=== PATIENT | male | born 1930 | race Caucasian/White ===

== ENCOUNTER 2020-11-09 12:31 | Inpatient (IN) | payer OTHER, BC ==
[2020-11-09 15:01] LABS: BASO % 1.2 % (0-2.0); EOS % 6.2 % (0-4.5); HEMATOCRIT 24.4 % (35.4-49); HEMOGLOBIN 8.3 GM/dL (11.7-16.9); MCH 33.9 pg (25.7-33.7); MEAN CELL VOLUME 99.8 fl (80-96); MEAN PLT VOLUME 9.6 fl (7.5-11.1); MONO % 16.1 % (3.8-10.2); NEUT % 58.5 % (42.8-82.8); PLATELET COUNT 207 K/MM3 (134-434); RBC 2.44 M/mm3 (4.00-5.60); RDW 15.1 % (11.9-15.9); WHITE BLOOD COUNT 6.6 K/mm3 (4.0-10.0)
[2020-11-09 15:07] LABS: INR 1.86 (0.83-1.09); PROTHROMBIN TIME (PATIENT) 22.5 SEC (9.7-13.0)
[2020-11-09 15:10] LABS: ACTIVATED PTT 34.3 SECONDS (25.2-36.5)
[2020-11-09 15:25] LABS: POTASSIUM 4.5 mmol/L (3.5-5.1)
[2020-11-09 15:27] LABS: CALCIUM 9.2 mg/dL (8.5-10.1)
[2020-11-09 15:28] LABS: ALBUMIN 2.9 g/dl (3.4-5.0); BLOOD UREA NITROGEN 20.2 mg/dL (7-18); MAGNESIUM 2.3 mg/dL (1.8-2.4)
[2020-11-09 15:30] LABS: CREATININE 1.1 mg/dL (0.55-1.3)
[2020-11-09 15:32] LABS: BILIRUBIN,TOTAL 0.6 mg/dL (0.2-1)
[2020-11-09 22:06] LABS: BASO % 1.1 % (0-2.0); EOS % 4.4 % (0-4.5); HEMATOCRIT 23.8 % (35.4-49); HEMOGLOBIN 8.3 GM/dL (11.7-16.9); LYMPH % 21.7 % (8-40); MCH 34.7 pg (25.7-33.7); MCHC 34.9 g/dl (32.0-35.9); MEAN CELL VOLUME 99.3 fl (80-96); MEAN PLT VOLUME 9.4 fl (7.5-11.1); MONO % 16.1 % (3.8-10.2); NEUT % 56.7 % (42.8-82.8); PLATELET COUNT 212 K/MM3 (134-434); RDW 15.3 % (11.9-15.9); WHITE BLOOD COUNT 7.3 K/mm3 (4.0-10.0)
[2020-11-09] MEDS ORDERED: SOTALOL HCL 80 MG TABLET (FP) PO ONE (22:14)
[2020-11-09] MEDS ORDERED: TAMSULOSIN HCL 0.4 MG CAP PO ONE (22:14)
[2020-11-09] MEDS ORDERED: FINASTERIDE 5 MG TABLET (FP) PO ONE (22:16)
[2020-11-09] MEDS ORDERED: TAMSULOSIN HCL 0.4 MG CAP ONE (22:27)
[2020-11-10] MEDS ORDERED: FINASTERIDE 5 MG TABLET (FP) PO SCH (10:00)
[2020-11-10] MEDS ORDERED: ALBUTEROL SO4 2.5/IPRATROPIUM 0.5 INH SOL 3 ML VIAL.NEB. NEB PRN (10:13)
[2020-11-10] MEDS ORDERED: ASCORBIC ACID 500 MG TABLET (FP) ONE (11:35)
[2020-11-10] MEDS ORDERED: ZINC SULFATE 220 MG CAPSULE (FP) ONE (11:35)
[2020-11-10] MEDS ORDERED: FAMOTIDINE 20 MG TABLET ONE (11:35)
[2020-11-10] MEDS ORDERED: TAMSULOSIN HCL 0.4 MG CAP ONE (11:36)
[2020-11-10] MEDS ORDERED: PANTOPRAZOLE SODIUM 40 MG/100 ML BAG IVPB ONE (11:36)
[2020-11-10] MEDS: ASCORBIC ACID 500 MG TABLET (FP) PO SCH (12:00)
[2020-11-10] MEDS: PANTOPRAZOLE SODIUM 40 MG VIAL IVPUSH SCH ×2 (12:00→23:33)
[2020-11-10] MEDS: TAMSULOSIN HCL 0.4 MG CAP PO SCH (12:00)
[2020-11-10] MEDS: ZINC SULFATE 220 MG CAPSULE (FP) PO SCH (12:00)
[2020-11-10] MEDS: FAMOTIDINE 20 MG TABLET PO SCH (12:00)
[2020-11-10] MEDS ORDERED: ALBUTEROL SO4 HFA INHALER IH PRN (12:43)
[2020-11-10] MEDS: D5-1/2NS+20 MEQ KCL - 20 MEQ/1,000 ML INFUS.BAG IV SCH (14:52)
[2020-11-10] MEDS: SOTALOL HCL 80 MG TABLET (FP) PO SCH ×2 (16:00→23:33)
[2020-11-10] MEDS: FINASTERIDE 5 MG TABLET (FP) PO SCH (23:33)
[2020-11-10] MEDS: ATORVASTATIN CA 10 MG TABLET (FP) PO SCH (23:33)
[2020-11-11] MEDS: SOTALOL HCL 80 MG TABLET (FP) PO SCH (05:43)
[2020-11-11] MEDS: D5-1/2NS+20 MEQ KCL - 20 MEQ/1,000 ML INFUS.BAG IV SCH ×2 (05:44→12:15)
[2020-11-11 05:53] LABS: EPI CELLS 8 /uL (0-25.1); HYALINE CASTS 2 /uL (0-3.1); URINE APPEARANCE CLEAR; URINE BACTERIA 42 /uL (0-1359); URINE BILIRUBIN NEGATIVE (NEGATIVE); URINE COLOR YELLOW; URINE GLUCOSE (UA) NEGATIVE (NEGATIVE); URINE KETONE TRACE (NEGATIVE); URINE LEUK ESTERASE TRACE (NEGATIVE); URINE NITRITE NEGATIVE (NEGATIVE); URINE PROTEIN TRACE (NEGATIVE); URINE RBC 14 /uL (0-23.9); URINE UROBILINOGEN 0.2 mg/dL (0.2-1.0); URINE WBC 11 /uL (0-25.8)
[2020-11-11] MEDS ORDERED: PT OWN MED DRAWER 7, Y5N ONE (06:27)
[2020-11-11 09:10] LABS: BASO % 0.7 % (0-2.0); EOS % 0.3 % (0-4.5); HEMATOCRIT 18.1 % (35.4-49); LYMPH % 14.9 % (8-40); MCH 34.4 pg (25.7-33.7); MCHC 34.6 g/dl (32.0-35.9); MEAN CELL VOLUME 99.5 fl (80-96); MEAN PLT VOLUME 9.6 fl (7.5-11.1); MONO % 14.4 % (3.8-10.2); NEUT % 69.7 % (42.8-82.8); PLATELET COUNT 183 K/MM3 (134-434); RBC 1.82 M/mm3 (4.00-5.60); RDW 15.6 % (11.9-15.9); WHITE BLOOD COUNT 7.6 K/mm3 (4.0-10.0)
[2020-11-11 09:21] LABS: HEMOGLOBIN 6.3 GM/dL (11.7-16.9)
[2020-11-11] MEDS: FAMOTIDINE 20 MG TABLET PO SCH (10:48)
[2020-11-11] MEDS: ZINC SULFATE 220 MG CAPSULE (FP) PO SCH (10:48)
[2020-11-11] MEDS: ASCORBIC ACID 500 MG TABLET (FP) PO SCH (10:48)
[2020-11-11] MEDS: TAMSULOSIN HCL 0.4 MG CAP PO SCH (10:48)
[2020-11-11] MEDS: PANTOPRAZOLE SODIUM 40 MG VIAL IVPUSH SCH ×2 (10:56→22:45)
[2020-11-11] MEDS: VANCOMYCIN 250 MG/5 ML ORAL SOLUTION PO SCH ×2 (13:07→18:22)
[2020-11-11 21:27] LABS: HEMOGLOBIN 8.8 GM/dL (11.7-16.9); MCH 32.3 pg (25.7-33.7); MCHC 33.6 g/dl (32.0-35.9); MEAN CELL VOLUME 96.1 fl (80-96); MEAN PLT VOLUME 9.6 fl (7.5-11.1); PLATELET COUNT 176 K/MM3 (134-434); RBC 2.71 M/mm3 (4.00-5.60); RDW 17.3 % (11.9-15.9)
[2020-11-11] MEDS: MUPIROCIN 2% TOPICAL OINTMENT FOR DECOLONIZATION NS SCH (22:44)
[2020-11-11] MEDS: CHLORHEXIDINE GLUCONATE 4% CLEANSER FOR DECOLONIZATION TP SCH (22:44)
[2020-11-11] MEDS: FINASTERIDE 5 MG TABLET (FP) PO SCH (22:45)
[2020-11-11] MEDS: ATORVASTATIN CA 10 MG TABLET (FP) PO SCH (22:45)
[2020-11-12] MEDS: VANCOMYCIN 250 MG/5 ML ORAL SOLUTION PO SCH ×2 (00:10→06:17)
[2020-11-12 07:17] LABS: HEMATOCRIT 22.2 % (35.4-49); HEMOGLOBIN 7.6 GM/dL (11.7-16.9); MCH 32.5 pg (25.7-33.7); MCHC 34.2 g/dl (32.0-35.9); MEAN PLT VOLUME 9.6 fl (7.5-11.1); PLATELET COUNT 166 K/MM3 (134-434); RBC 2.33 M/mm3 (4.00-5.60); RDW 17.2 % (11.9-15.9); WHITE BLOOD COUNT 9.9 K/mm3 (4.0-10.0)
[2020-11-12 07:23] LABS: BASO % 0.8 % (0-2.0); EOS % 0.3 % (0-4.5); HEMATOCRIT 22.2 % (35.4-49); HEMOGLOBIN 7.5 GM/dL (11.7-16.9); LYMPH % 14.5 % (8-40); MCH 32.4 pg (25.7-33.7); MEAN CELL VOLUME 95.5 fl (80-96); MEAN PLT VOLUME 9.7 fl (7.5-11.1); MONO % 15.8 % (3.8-10.2); NEUT % 68.6 % (42.8-82.8); PLATELET COUNT 167 K/MM3 (134-434); RBC 2.32 M/mm3 (4.00-5.60); RDW 17.4 % (11.9-15.9)
[2020-11-12 07:45] LABS: POTASSIUM 4.7 mmol/L (3.5-5.1)
[2020-11-12 07:49] LABS: BLOOD UREA NITROGEN 21.9 mg/dL (7-18); CALCIUM 8.2 mg/dL (8.5-10.1)
[2020-11-12 07:53] LABS: CREATININE 1.2 mg/dL (0.55-1.3)
[2020-11-12 07:54] LABS: BILIRUBIN,TOTAL 1.1 mg/dL (0.2-1); TOT PROT 5.4 g/dl (6.4-8.2)
[2020-11-12 08:25] LABS: ALBUMIN 2.3 g/dl (3.4-5.0)
[2020-11-12 09:10] LABS: ERYTHROCYTE SEDIMENTATION RATE 10 mm/hr (0-20)
[2020-11-12] MEDS: TAMSULOSIN HCL 0.4 MG CAP PO SCH (09:23)
[2020-11-12] MEDS: FAMOTIDINE 20 MG TABLET PO SCH (09:23)
[2020-11-12] MEDS: ZINC SULFATE 220 MG CAPSULE (FP) PO SCH (09:23)
[2020-11-12] MEDS: PANTOPRAZOLE SODIUM 40 MG VIAL IVPUSH SCH ×2 (09:23→22:48)
[2020-11-12] MEDS: ASCORBIC ACID 500 MG TABLET (FP) PO SCH (09:23)
[2020-11-12] MEDS: MUPIROCIN 2% TOPICAL OINTMENT FOR DECOLONIZATION NS SCH ×2 (09:23→22:47)
[2020-11-12 10:30] LABS: INR 1.54 (0.83-1.09); PROTHROMBIN TIME (PATIENT) 18.4 SEC (9.7-13.0)
[2020-11-12 10:33] LABS: ACTIVATED PTT 28.3 SECONDS (25.2-36.5)
[2020-11-12] MEDS ORDERED: SODIUM CHLORIDE 250 ML IV STA (11:39)
[2020-11-12] MEDS ORDERED: PHYTONADIONE 10 MG/1 ML AMP IVPB ONE (11:45)
[2020-11-12] MEDS: DEXTROSE 5%-NORMAL SALINE 1,000 ML IV SCH (12:12)
[2020-11-12] MEDS ORDERED: PT OWN MED DRAWER 7, Y5N ONE ×2 (14:06→22:50)
[2020-11-12] MEDS: D5-1/2NS+20 MEQ KCL - 20 MEQ/1,000 ML INFUS.BAG IV SCH (14:22)
[2020-11-12] MEDS: SOTALOL HCL 80 MG TABLET (FP) PO SCH ×2 (14:23→22:51)
[2020-11-12 18:37] LABS: HEMATOCRIT 25.2 % (35.4-49); HEMOGLOBIN 8.4 GM/dL (11.7-16.9); MCH 31.6 pg (25.7-33.7); MCHC 33.1 g/dl (32.0-35.9); MEAN CELL VOLUME 95.3 fl (80-96); MEAN PLT VOLUME 9.5 fl (7.5-11.1); PLATELET COUNT 165 K/MM3 (134-434); RBC 2.65 M/mm3 (4.00-5.60); RDW 18.4 % (11.9-15.9); WHITE BLOOD COUNT 9.3 K/mm3 (4.0-10.0)
[2020-11-12] MEDS: CHLORHEXIDINE GLUCONATE 4% CLEANSER FOR DECOLONIZATION TP SCH (22:48)
[2020-11-12] MEDS: FINASTERIDE 5 MG TABLET (FP) PO SCH (22:48)
[2020-11-12] MEDS: ATORVASTATIN CA 10 MG TABLET (FP) PO SCH (22:48)
[2020-11-13] MEDS ORDERED: PROCHLORPERAZINE INJECTION 10 MG/2 ML VIAL IVPB ONE (04:15)
[2020-11-13 04:31] LABS: HEMATOCRIT 22.5 % (35.4-49); HEMOGLOBIN 7.7 GM/dL (11.7-16.9); MCH 32.3 pg (25.7-33.7); MCHC 34.3 g/dl (32.0-35.9); MEAN CELL VOLUME 94.1 fl (80-96); MEAN PLT VOLUME 9.6 fl (7.5-11.1); PLATELET COUNT 167 K/MM3 (134-434); RBC 2.39 M/mm3 (4.00-5.60); RDW 18.5 % (11.9-15.9); WHITE BLOOD COUNT 10.4 K/mm3 (4.0-10.0)
[2020-11-13] MEDS: SOTALOL HCL 80 MG TABLET (FP) PO SCH ×3 (04:59→21:42)
[2020-11-13 07:15] LABS: BASO % 0.7 % (0-2.0); EOS % 0.3 % (0-4.5); HEMATOCRIT 22.6 % (35.4-49); HEMOGLOBIN 7.8 GM/dL (11.7-16.9); LYMPH % 9.8 % (8-40); MCH 32.5 pg (25.7-33.7); MCHC 34.3 g/dl (32.0-35.9); MEAN CELL VOLUME 94.7 fl (80-96); MEAN PLT VOLUME 9.5 fl (7.5-11.1); MONO % 16.3 % (3.8-10.2); NEUT % 72.9 % (42.8-82.8); PLATELET COUNT 157 K/MM3 (134-434); RBC 2.39 M/mm3 (4.00-5.60); RDW 18.8 % (11.9-15.9); WHITE BLOOD COUNT 12.5 K/mm3 (4.0-10.0)
[2020-11-13 07:20] LABS: INR 1.35 (0.83-1.09); PROTHROMBIN TIME (PATIENT) 16.2 SEC (9.7-13.0)
[2020-11-13 07:33] LABS: POTASSIUM 4.4 mmol/L (3.5-5.1)
[2020-11-13 07:38] LABS: CALCIUM 8.1 mg/dL (8.5-10.1)
[2020-11-13 07:39] LABS: ALBUMIN 2.6 g/dl (3.4-5.0)
[2020-11-13 07:42] LABS: BILIRUBIN,TOTAL 1.1 mg/dL (0.2-1); CREATININE 1.2 mg/dL (0.55-1.3); TOT PROT 5.9 g/dl (6.4-8.2)
[2020-11-13] MEDS: TAMSULOSIN HCL 0.4 MG CAP PO SCH (08:34)
[2020-11-13] MEDS ORDERED: CALCIUM CHLORIDE 10% 1 GM/10 ML *VIAL IVPB ONE (09:02)
[2020-11-13] MEDS ORDERED: CALCIUM CHLORIDE 1 GM/10 ML *DISP.SYRIN ONE (09:12)
[2020-11-13] MEDS: ASCORBIC ACID 500 MG TABLET (FP) PO SCH (09:33)
[2020-11-13] MEDS: ZINC SULFATE 220 MG CAPSULE (FP) PO SCH (09:34)
[2020-11-13] MEDS: FAMOTIDINE 20 MG TABLET PO SCH (09:34)
[2020-11-13] MEDS: MUPIROCIN 2% TOPICAL OINTMENT FOR DECOLONIZATION NS SCH ×2 (09:34→23:00)
[2020-11-13] MEDS: PANTOPRAZOLE SODIUM 40 MG VIAL IVPUSH SCH (09:34)
[2020-11-13] MEDS: DEXTROSE 5%-NORMAL SALINE 1,000 ML IV SCH (12:16)
[2020-11-13] MEDS ORDERED: ALPRAZolam 1 MG TABLET PO PRN (12:27)
[2020-11-13] MEDS ORDERED: PT OWN MED DRAWER 7, Y5N ONE ×2 (12:32→21:10)
[2020-11-13] MEDS ORDERED: DEXTROSE 5%-LACTATED RINGERS 1,000 ML IV SCH (12:45)
[2020-11-13 14:45] LABS: HEMATOCRIT 25.5 % (35.4-49); HEMOGLOBIN 8.7 GM/dL (11.7-16.9); MCHC 34.1 g/dl (32.0-35.9); MEAN CELL VOLUME 93.8 fl (80-96); MEAN PLT VOLUME 9.4 fl (7.5-11.1); PLATELET COUNT 169 K/MM3 (134-434); RBC 2.72 M/mm3 (4.00-5.60); RDW 17.6 % (11.9-15.9); WHITE BLOOD COUNT 12.3 K/mm3 (4.0-10.0)
[2020-11-13] MEDS ORDERED: POLYETHYLENE GLYCOL 3350 119 GM BTL PO ONE (16:57)
[2020-11-13] MEDS: PANTOPRAZOLE SODIUM 80 MG in SODIUM CHLORIDE 100 ML IVPB SCH (18:28)
[2020-11-13] MEDS ORDERED: FUROSEMIDE 40 MG/4 ML INJECTABLE VIAL IVPUSH ONE (19:08)
[2020-11-13] MEDS: ATORVASTATIN CA 10 MG TABLET (FP) PO SCH (21:42)
[2020-11-13] MEDS: CHLORHEXIDINE GLUCONATE 4% CLEANSER FOR DECOLONIZATION TP SCH (21:43)
[2020-11-13] MEDS: FINASTERIDE 5 MG TABLET (FP) PO SCH (21:43)
[2020-11-13 22:04] LABS: HEMATOCRIT 26.4 % (35.4-49); HEMOGLOBIN 8.8 GM/dL (11.7-16.9); MCH 31.7 pg (25.7-33.7); MCHC 33.3 g/dl (32.0-35.9); MEAN CELL VOLUME 95.4 fl (80-96); MEAN PLT VOLUME 9.8 fl (7.5-11.1); PLATELET COUNT 173 K/MM3 (134-434); RBC 2.77 M/mm3 (4.00-5.60); RDW 17.9 % (11.9-15.9); WHITE BLOOD COUNT 11.8 K/mm3 (4.0-10.0)
[2020-11-14] MEDS ORDERED: PT OWN MED DRAWER 7, Y5N ONE ×3 (06:10→21:05)
[2020-11-14] MEDS: PANTOPRAZOLE SODIUM 80 MG in SODIUM CHLORIDE 100 ML IVPB SCH ×3 (06:14→13:45)
[2020-11-14] MEDS: SOTALOL HCL 80 MG TABLET (FP) PO SCH ×3 (06:14→21:18)
[2020-11-14 06:38] LABS: HEMATOCRIT 25.5 % (35.4-49); HEMOGLOBIN 8.6 GM/dL (11.7-16.9); MCH 32.1 pg (25.7-33.7); MCHC 33.7 g/dl (32.0-35.9); MEAN CELL VOLUME 95.4 fl (80-96); MEAN PLT VOLUME 9.6 fl (7.5-11.1); PLATELET COUNT 163 K/MM3 (134-434); RBC 2.68 M/mm3 (4.00-5.60); RDW 17.6 % (11.9-15.9); WHITE BLOOD COUNT 14.9 K/mm3 (4.0-10.0)
[2020-11-14] MEDS ORDERED: DEXTROSE 5%-LACTATED RINGERS 1,000 ML IV SCH (06:41)
[2020-11-14 07:10] LABS: POTASSIUM 4.3 mmol/L (3.5-5.1)
[2020-11-14 07:23] LABS: ALBUMIN 2.5 g/dl (3.4-5.0); CALCIUM 8.1 mg/dL (8.5-10.1)
[2020-11-14 07:24] LABS: BLOOD UREA NITROGEN 23.3 mg/dL (7-18); MAGNESIUM 1.9 mg/dL (1.8-2.4)
[2020-11-14 07:25] LABS: CREATININE 1.2 mg/dL (0.55-1.3)
[2020-11-14 07:26] LABS: PHOSPHOROUS 2.9 mg/dL (2.5-4.9)
[2020-11-14 07:27] LABS: BILIRUBIN,TOTAL 1.1 mg/dL (0.2-1); TOT PROT 5.7 g/dl (6.4-8.2)
[2020-11-14] MEDS: TAMSULOSIN HCL 0.4 MG CAP PO SCH (09:17)
[2020-11-14] MEDS: ZINC SULFATE 220 MG CAPSULE (FP) PO SCH (09:17)
[2020-11-14] MEDS: ASCORBIC ACID 500 MG TABLET (FP) PO SCH (09:17)
[2020-11-14] MEDS: MUPIROCIN 2% TOPICAL OINTMENT FOR DECOLONIZATION NS SCH ×2 (09:17→21:18)
[2020-11-14] MEDS: FAMOTIDINE 20 MG TABLET PO SCH (09:17)
[2020-11-14] MEDS ORDERED: SODIUM CHLORIDE 0.9% 500 ML INFUS.BAG IV ONE (14:38)
[2020-11-14] MEDS: CHLORHEXIDINE GLUCONATE 4% CLEANSER FOR DECOLONIZATION TP SCH (21:18)
[2020-11-14] MEDS: ATORVASTATIN CA 10 MG TABLET (FP) PO SCH (21:18)
[2020-11-14] MEDS: FINASTERIDE 5 MG TABLET (FP) PO SCH (21:19)
[2020-11-14 21:35] LABS: HEMATOCRIT 24.5 % (35.4-49); MCH 31.3 pg (25.7-33.7); MCHC 32.6 g/dl (32.0-35.9); MEAN CELL VOLUME 96.1 fl (80-96); MEAN PLT VOLUME 9.4 fl (7.5-11.1); PLATELET COUNT 164 K/MM3 (134-434); RBC 2.55 M/mm3 (4.00-5.60); WHITE BLOOD COUNT 18.6 K/mm3 (4.0-10.0)
[2020-11-15] MEDS ORDERED: SODIUM CHLORIDE 0.9% 500 ML INFUS.BAG IV ONE (00:12)
[2020-11-15] MEDS ORDERED: MAGNESIUM 2GM/50ML STERILE WATER IVPB IVPB ONE ×2 (00:14→23:45)
[2020-11-15 02:05] LABS: HEMATOCRIT 22.5 % (35.4-49); HEMOGLOBIN 7.3 GM/dL (11.7-16.9); MCH 31.2 pg (25.7-33.7); MCHC 32.5 g/dl (32.0-35.9); MEAN PLT VOLUME 9.3 fl (7.5-11.1); PLATELET COUNT 147 K/MM3 (134-434); RBC 2.34 M/mm3 (4.00-5.60); RDW 17.8 % (11.9-15.9); WHITE BLOOD COUNT 16.7 K/mm3 (4.0-10.0)
[2020-11-15] MEDS: PANTOPRAZOLE SODIUM 80 MG in SODIUM CHLORIDE 100 ML IVPB SCH ×4 (06:28→18:53)
[2020-11-15] MEDS: DEXTROSE 5%-LACTATED RINGERS 1,000 ML IV SCH (06:28)
[2020-11-15] MEDS: SOTALOL HCL 80 MG TABLET (FP) PO SCH ×3 (06:30→20:59)
[2020-11-15 08:16] LABS: EPI CELLS 17 /uL (0-25.1); HYALINE CASTS 13 /uL (0-3.1); URINE APPEARANCE CLOUDY; URINE BACTERIA 42 /uL (0-1359); URINE BILIRUBIN NEGATIVE (NEGATIVE); URINE COLOR DK YELLOW; URINE GLUCOSE (UA) NEGATIVE (NEGATIVE); URINE KETONE TRACE (NEGATIVE); URINE LEUK ESTERASE NEGATIVE (NEGATIVE); URINE NITRITE NEGATIVE (NEGATIVE); URINE PROTEIN 1+ (NEGATIVE); URINE RBC 29 /uL (0-23.9); URINE UROBILINOGEN 0.2 mg/dL (0.2-1.0); URINE WBC 29 /uL (0-25.8)
[2020-11-15] MEDS: TAMSULOSIN HCL 0.4 MG CAP PO SCH (09:28)
[2020-11-15] MEDS: ZINC SULFATE 220 MG CAPSULE (FP) PO SCH (09:28)
[2020-11-15] MEDS: MUPIROCIN 2% TOPICAL OINTMENT FOR DECOLONIZATION NS SCH ×2 (09:28→21:00)
[2020-11-15] MEDS: ASCORBIC ACID 500 MG TABLET (FP) PO SCH (09:28)
[2020-11-15] MEDS: FAMOTIDINE 20 MG TABLET PO SCH (09:29)
[2020-11-15 10:04] LABS: HEMATOCRIT 25.5 % (35.4-49); HEMOGLOBIN 8.5 GM/dL (11.7-16.9); MCH 31.2 pg (25.7-33.7); MCHC 33.3 g/dl (32.0-35.9); MEAN CELL VOLUME 93.8 fl (80-96); MEAN PLT VOLUME 9.4 fl (7.5-11.1); PLATELET COUNT 144 K/MM3 (134-434); RBC 2.72 M/mm3 (4.00-5.60); WHITE BLOOD COUNT 15.3 K/mm3 (4.0-10.0)
[2020-11-15 10:33] LABS: CALCIUM 7.7 mg/dL (8.5-10.1)
[2020-11-15 10:34] LABS: ALBUMIN 2.2 g/dl (3.4-5.0); BLOOD UREA NITROGEN 24.4 mg/dL (7-18); MAGNESIUM 2.1 mg/dL (1.8-2.4)
[2020-11-15 10:37] LABS: CREATININE 1.5 mg/dL (0.55-1.3); PHOSPHOROUS 2.4 mg/dL (2.5-4.9)
[2020-11-15 10:38] LABS: TOT PROT 5.4 g/dl (6.4-8.2)
[2020-11-15 10:46] LABS: POTASSIUM 4.1 mmol/L (3.5-5.1)
[2020-11-15] MEDS ORDERED: MAGNESIUM SULF 50% (8.12 MEQ/2 ML-1 GM VIAL) IVPB ONE (10:58)
[2020-11-15] MEDS ORDERED: ALBUTEROL SO4 HFA INHALER IH PRN (11:02)
[2020-11-15] MEDS: NAPH,MB-DB/K PH,MBDB POWDER PACKET PO SCH ×2 (11:15→20:59)
[2020-11-15 16:08] LABS: HEMATOCRIT 25.6 % (35.4-49); HEMOGLOBIN 8.3 GM/dL (11.7-16.9); MCH 30.9 pg (25.7-33.7); MCHC 32.5 g/dl (32.0-35.9); MEAN CELL VOLUME 94.9 fl (80-96); MEAN PLT VOLUME 9.7 fl (7.5-11.1); PLATELET COUNT 148 K/MM3 (134-434); RDW 18.3 % (11.9-15.9); WHITE BLOOD COUNT 14.3 K/mm3 (4.0-10.0)
[2020-11-15 16:23] LABS: POTASSIUM 3.8 mmol/L (3.5-5.1)
[2020-11-15 16:25] LABS: BLOOD UREA NITROGEN 23.7 mg/dL (7-18); CALCIUM 7.4 mg/dL (8.5-10.1)
[2020-11-15 16:29] LABS: CREATININE 1.3 mg/dL (0.55-1.3)
[2020-11-15] MEDS ORDERED: PT OWN MED DRAWER 7, Y5N ONE ×2 (16:48→20:54)
[2020-11-15 20:36] VITALS: BMI 31.1
[2020-11-15] MEDS: ATORVASTATIN CA 10 MG TABLET (FP) PO SCH (20:59)
[2020-11-15] MEDS: FINASTERIDE 5 MG TABLET (FP) PO SCH (20:59)
[2020-11-15] MEDS: CHLORHEXIDINE GLUCONATE 4% CLEANSER FOR DECOLONIZATION TP SCH (21:01)
[2020-11-16] MEDS: DEXTROSE 5%-LACTATED RINGERS 1,000 ML IV SCH ×2 (02:30→09:22)
[2020-11-16] MEDS: PANTOPRAZOLE SODIUM 80 MG in SODIUM CHLORIDE 100 ML IVPB SCH ×2 (06:50→16:58)
[2020-11-16] MEDS: SOTALOL HCL 80 MG TABLET (FP) PO SCH ×3 (06:52→21:37)
[2020-11-16 07:16] LABS: BASO % 0.3 % (0-2.0); EOS % 1.5 % (0-4.5); HEMATOCRIT 26.2 % (35.4-49); HEMOGLOBIN 8.7 GM/dL (11.7-16.9); LYMPH % 7.4 % (8-40); MCH 31.6 pg (25.7-33.7); MCHC 33.2 g/dl (32.0-35.9); MEAN CELL VOLUME 95.2 fl (80-96); MEAN PLT VOLUME 9.6 fl (7.5-11.1); MONO % 19.8 % (3.8-10.2); PLATELET COUNT 155 K/MM3 (134-434); RBC 2.75 M/mm3 (4.00-5.60); WHITE BLOOD COUNT 11.9 K/mm3 (4.0-10.0)
[2020-11-16 07:48] LABS: POTASSIUM 4.3 mmol/L (3.5-5.1)
[2020-11-16 07:50] LABS: CALCIUM 7.7 mg/dL (8.5-10.1)
[2020-11-16 07:52] LABS: ALBUMIN 2.2 g/dl (3.4-5.0); BLOOD UREA NITROGEN 23.8 mg/dL (7-18); MAGNESIUM 1.9 mg/dL (1.8-2.4)
[2020-11-16 07:55] LABS: CREATININE 1.4 mg/dL (0.55-1.3); PHOSPHOROUS 2.6 mg/dL (2.5-4.9)
[2020-11-16 07:56] LABS: BILIRUBIN,TOTAL 1.2 mg/dL (0.2-1); TOT PROT 5.4 g/dl (6.4-8.2)
[2020-11-16] MEDS: TAMSULOSIN HCL 0.4 MG CAP PO SCH (09:45)
[2020-11-16] MEDS: ZINC SULFATE 220 MG CAPSULE (FP) PO SCH (09:45)
[2020-11-16] MEDS: MUPIROCIN 2% TOPICAL OINTMENT FOR DECOLONIZATION NS SCH ×2 (09:47→21:37)
[2020-11-16] MEDS: FAMOTIDINE 20 MG TABLET PO SCH (09:47)
[2020-11-16] MEDS: ASCORBIC ACID 500 MG TABLET (FP) PO SCH (09:47)
[2020-11-16] MEDS ORDERED: PT OWN MED DRAWER 7, Y5N ONE ×4 (14:40→21:32)
[2020-11-16] MEDS: CHLORHEXIDINE GLUCONATE 4% CLEANSER FOR DECOLONIZATION TP SCH (21:37)
[2020-11-16] MEDS: ATORVASTATIN CA 10 MG TABLET (FP) PO SCH (21:37)
[2020-11-16] MEDS: FINASTERIDE 5 MG TABLET (FP) PO SCH (21:38)
[2020-11-16] MEDS ORDERED: MELATONIN 5 MG TABLETS PO ONE (22:40)
[2020-11-17] MEDS: SOTALOL HCL 80 MG TABLET (FP) PO SCH ×2 (06:11→12:59)
[2020-11-17] MEDS: PANTOPRAZOLE SODIUM 80 MG in SODIUM CHLORIDE 100 ML IVPB SCH ×2 (06:12→12:57)
[2020-11-17] MEDS: DEXTROSE 5%-LACTATED RINGERS 1,000 ML IV SCH ×2 (06:12→09:48)
[2020-11-17 08:51] LABS: HEMATOCRIT 27.3 % (35.4-49); HEMOGLOBIN 9.2 GM/dL (11.7-16.9); MCH 32.6 pg (25.7-33.7); MCHC 33.7 g/dl (32.0-35.9); MEAN CELL VOLUME 96.6 fl (80-96); MEAN PLT VOLUME 9.2 fl (7.5-11.1); PLATELET COUNT 172 K/MM3 (134-434); RBC 2.82 M/mm3 (4.00-5.60); RDW 18.3 % (11.9-15.9)
[2020-11-17] MEDS: MUPIROCIN 2% TOPICAL OINTMENT FOR DECOLONIZATION NS SCH (09:21)
[2020-11-17] MEDS: ASCORBIC ACID 500 MG TABLET (FP) PO SCH (09:21)
[2020-11-17] MEDS: ZINC SULFATE 220 MG CAPSULE (FP) PO SCH (09:21)
[2020-11-17] MEDS: FAMOTIDINE 20 MG TABLET PO SCH (09:21)
[2020-11-17] MEDS: TAMSULOSIN HCL 0.4 MG CAP PO SCH (09:21)
[2020-11-17 09:23] LABS: POTASSIUM 4.1 mmol/L (3.5-5.1)
[2020-11-17 09:28] LABS: ALBUMIN 2.3 g/dl (3.4-5.0); BLOOD UREA NITROGEN 21.1 mg/dL (7-18); CALCIUM 7.9 mg/dL (8.5-10.1)
[2020-11-17 09:31] LABS: CREATININE 1.3 mg/dL (0.55-1.3); PHOSPHOROUS 2.6 mg/dL (2.5-4.9)
[2020-11-17 09:32] LABS: BILIRUBIN,TOTAL 0.9 mg/dL (0.2-1); TOT PROT 5.5 g/dl (6.4-8.2)
[2020-11-17] MEDS ORDERED: PT OWN MED DRAWER 7, Y5N ONE ×2 (12:18→12:50)
[2020-11-17] MEDS ORDERED: MAG HYDROX/AL HYDROX/SIMETH 30 ML UNIT-DOSE CUP PO PRN (16:00)
[2020-11-17] MEDS ORDERED: FUROSEMIDE 40 MG/4 ML INJECTABLE VIAL IVPUSH ONE (19:12)
[2020-11-17] MEDS ORDERED: DEXTROSE 5%-LACTATED RINGERS 1,000 ML IV SCH (19:15)
[2020-11-17 20:32] LABS: HEMOGLOBIN 9.8 GM/dL (11.7-16.9); MCH 31.8 pg (25.7-33.7); MCHC 33.6 g/dl (32.0-35.9); MEAN CELL VOLUME 94.7 fl (80-96); MEAN PLT VOLUME 9.1 fl (7.5-11.1); PLATELET COUNT 198 K/MM3 (134-434); RBC 3.07 M/mm3 (4.00-5.60); RDW 18.4 % (11.9-15.9); WHITE BLOOD COUNT 9.3 K/mm3 (4.0-10.0)
[2020-11-17] MEDS ORDERED: PANTOPRAZOLE 40 MG TABLET PO SCH (22:00)
[2020-11-18] MEDS: ATORVASTATIN CA 10 MG TABLET (FP) PO SCH (00:09)
[2020-11-18] MEDS: MELATONIN 5 MG TABLETS PO SCH ×2 (00:09→21:08)
[2020-11-18] MEDS: SOTALOL HCL 80 MG TABLET (FP) PO SCH ×4 (00:09→21:08)
[2020-11-18] MEDS: FINASTERIDE 5 MG TABLET (FP) PO SCH (00:09)
[2020-11-18] MEDS: MUPIROCIN 2% TOPICAL OINTMENT FOR DECOLONIZATION NS SCH (01:08)
[2020-11-18] MEDS: CHLORHEXIDINE GLUCONATE 4% CLEANSER FOR DECOLONIZATION TP SCH (01:08)
[2020-11-18] MEDS ORDERED: ALBUTEROL SO4 HFA INHALER IH PRN (01:09)
[2020-11-18] MEDS ORDERED: MAG HYDROX/AL HYDROX/SIMETH 30 ML UNIT-DOSE CUP PO PRN (01:09)
[2020-11-18] MEDS ORDERED: SODIUM CHLORIDE 1,000 ML IV SCH (07:15)
[2020-11-18 07:28] LABS: HEMATOCRIT 26.3 % (35.4-49); HEMOGLOBIN 9.1 GM/dL (11.7-16.9); MCH 32.9 pg (25.7-33.7); MCHC 34.5 g/dl (32.0-35.9); MEAN CELL VOLUME 95.2 fl (80-96); MEAN PLT VOLUME 9.3 fl (7.5-11.1); PLATELET COUNT 196 K/MM3 (134-434); RBC 2.76 M/mm3 (4.00-5.60); RDW 17.8 % (11.9-15.9); WHITE BLOOD COUNT 9.5 K/mm3 (4.0-10.0)
[2020-11-18 07:39] LABS: POTASSIUM 4.1 mmol/L (3.5-5.1)
[2020-11-18 07:46] LABS: ALBUMIN 2.2 g/dl (3.4-5.0)
[2020-11-18 07:47] LABS: BLOOD UREA NITROGEN 20.5 mg/dL (7-18); MAGNESIUM 1.8 mg/dL (1.8-2.4)
[2020-11-18 07:49] LABS: CREATININE 1.3 mg/dL (0.55-1.3)
[2020-11-18 07:50] LABS: PHOSPHOROUS 2.9 mg/dL (2.5-4.9)
[2020-11-18 07:51] LABS: BILIRUBIN,TOTAL 0.8 mg/dL (0.2-1); TOT PROT 5.4 g/dl (6.4-8.2)
[2020-11-18] MEDS: TAMSULOSIN HCL 0.4 MG CAP PO SCH (08:29)
[2020-11-18] MEDS ORDERED: MUPIROCIN 2% TOPICAL OINTMENT FOR DECOLONIZATION NS SCH (10:00)
[2020-11-18] MEDS: ASCORBIC ACID 500 MG TABLET (FP) PO SCH (10:04)
[2020-11-18] MEDS: ZINC SULFATE 220 MG CAPSULE (FP) PO SCH (10:04)
[2020-11-18] MEDS: PANTOPRAZOLE 40 MG TABLET PO SCH ×2 (10:04→21:08)
[2020-11-18] MEDS: FAMOTIDINE 20 MG TABLET PO SCH (10:04)
[2020-11-18] MEDS: FUROSEMIDE 20 MG TABLET (FP) PO SCH (11:47)
[2020-11-18] MEDS ORDERED: CHLORHEXIDINE GLUCONATE 4% CLEANSER FOR DECOLONIZATION TP SCH (22:00)
[2020-11-18] MEDS ORDERED: ATORVASTATIN CA 10 MG TABLET (FP) PO SCH (22:00)
[2020-11-18] MEDS ORDERED: FINASTERIDE 5 MG TABLET (FP) PO SCH (22:00)
[2020-11-19] MEDS: SOTALOL HCL 80 MG TABLET (FP) PO SCH ×2 (05:11→13:44)
[2020-11-19 07:35] LABS: POTASSIUM 3.9 mmol/L (3.5-5.1)
[2020-11-19 07:37] LABS: HEMATOCRIT 26.2 % (35.4-49); HEMOGLOBIN 8.7 GM/dL (11.7-16.9); MCH 31.7 pg (25.7-33.7); MCHC 33.3 g/dl (32.0-35.9); MEAN CELL VOLUME 95.1 fl (80-96); MEAN PLT VOLUME 9.7 fl (7.5-11.1); PLATELET COUNT 184 K/MM3 (134-434); RBC 2.76 M/mm3 (4.00-5.60); RDW 18.2 % (11.9-15.9); WHITE BLOOD COUNT 8.2 K/mm3 (4.0-10.0)
[2020-11-19 07:41] LABS: ALBUMIN 2.2 g/dl (3.4-5.0); MAGNESIUM 1.8 mg/dL (1.8-2.4)
[2020-11-19 07:44] LABS: BILIRUBIN,TOTAL 0.8 mg/dL (0.2-1); CREATININE 1.5 mg/dL (0.55-1.3); PHOSPHOROUS 3.1 mg/dL (2.5-4.9); TOT PROT 5.3 g/dl (6.4-8.2)
[2020-11-19] MEDS: TAMSULOSIN HCL 0.4 MG CAP PO SCH (10:27)
[2020-11-19] MEDS: FUROSEMIDE 20 MG TABLET (FP) PO SCH (10:27)
[2020-11-19] MEDS: PANTOPRAZOLE 40 MG TABLET PO SCH (10:27)
[2020-11-19] MEDS: ZINC SULFATE 220 MG CAPSULE (FP) PO SCH (10:27)
[2020-11-19] MEDS: FAMOTIDINE 20 MG TABLET PO SCH (10:27)
[2020-11-19] MEDS: ASCORBIC ACID 500 MG TABLET (FP) PO SCH (10:28)
[2020-11-19 14:14] VITALS: BP 126/84; PULSE 65; TEMP 97.7
== END 2020-11-19 18:40 | DRG 377 ==
LOC: JER 12:31 → JERBED 16:45 → J8W 11-10 20:59 → JICU 11-11 11:19 → J7W 11-17 21:05
PROVIDERS: ADMIT Family Medicine; ATTEND Internal Medicine
PROC: 30233K1 Transfusion of Nonautologous Frozen Plasma into Peripheral Vein, Percutaneous Approach (ICD-10-PCS; 2020-11-09)
PROC: 30233N1 Transfusion of Nonautologous Red Blood Cells into Peripheral Vein, Percutaneous Approach (ICD-10-PCS; 2020-11-11)
PROC: 0DJD8ZZ Inspection of Lower Intestinal Tract, Via Natural or Artificial Opening Endoscopic (ICD-10-PCS; 2020-11-13)
PROC: 0DJ08ZZ Inspection of Upper Intestinal Tract, Via Natural or Artificial Opening Endoscopic (ICD-10-PCS; principal; 2020-11-13 14:30)
PROC: 30233R1 Transfusion of Nonautologous Platelets into Peripheral Vein, Percutaneous Approach (ICD-10-PCS; 2020-11-14)
DX: K25.4 Chronic or unspecified gastric ulcer with hemorrhage (principal); U07.1 COVID-19; K86.2 Cyst of pancreas; R18.8 Other ascites; D62 Acute posthemorrhagic anemia; K55.9 Vascular disorder of intestine, unspecified; I42.0 Dilated cardiomyopathy; N39.0 Urinary tract infection, site not specified; I13.0 Hypertensive heart and chronic kidney disease with heart failure and stage 1 through stage 4 chronic kidney disease, or unspecified chronic kidney disease; I50.42 Chronic combined systolic (congestive) and diastolic (congestive) heart failure; N17.9 Acute kidney failure, unspecified; I25.10 Atherosclerotic heart disease of native coronary artery without angina pectoris; N18.9 Chronic kidney disease, unspecified; I48.91 Unspecified atrial fibrillation; E11.22 Type 2 diabetes mellitus with diabetic chronic kidney disease; I25.2 Old myocardial infarction; J44.9 Chronic obstructive pulmonary disease, unspecified; H35.30 Unspecified macular degeneration; D64.9 Anemia, unspecified; K31.819 Angiodysplasia of stomach and duodenum without bleeding; E78.5 Hyperlipidemia, unspecified; N40.0 Benign prostatic hyperplasia without lower urinary tract symptoms; D12.6 Benign neoplasm of colon, unspecified; K43.2 Incisional hernia without obstruction or gangrene; I71.4 Abdominal aortic aneurysm, without rupture; K74.60 Unspecified cirrhosis of liver; K57.90 Diverticulosis of intestine, part unspecified, without perforation or abscess without bleeding; D49.0 Neoplasm of unspecified behavior of digestive system; K75.81 Nonalcoholic steatohepatitis (NASH); Z95.810 Presence of automatic (implantable) cardiac defibrillator; K80.20 Calculus of gallbladder without cholecystitis without obstruction; Z98.0 Intestinal bypass and anastomosis status; Z85.46 Personal history of malignant neoplasm of prostate
CPT/HCPCS: 36415; 36430; 36511; 71045-TC-FY; 74174-TC; 74177-TC; 76775-TC; 80048; 80053; 81003; 82105; 82272; 82728; 83540; 83550; 83605; 83615; 83690; 83735; 84100; 85025; 85027; 85045; 85379; 85610; 85651; 85730; 86140; 86301; 86769; 86850; 86870; 86900; 86901; 86902; 86922; 87045; 87046; 87177; 87205; 87209; 87324; 87449; 93005; 93010; 94761; 97116-GP; 97161-GP; 99285-25; C9803; P9017; P9034; P9038; P9058; Q9967; U0003

== ENCOUNTER 2021-09-06 15:22 | Inpatient (IN) | payer OTHER, BC ==
[2021-09-06] MEDS ORDERED: ACETAMINOPHEN 1000 MG/100 ML BAG IVPB ONE (17:43)
[2021-09-06] MEDS ORDERED: DEXAMETHASONE SOD PHOSPHATE 10 MG/1 ML VIAL IVPUSH ONE (18:15)
[2021-09-06 19:09] LABS: VENOUS BASE EXCESS -2.8 mmol/L (-2-2); VENOUS O2 SATURATION 76.2 % (70-80); VENOUS PCO2 30.9 mmHg (38-52); VENOUS PH 7.437 (7.310-7.410)
[2021-09-06 19:16] LABS: HEMATOCRIT 38.6 % (35.4-49); HEMOGLOBIN 12.8 GM/dL (11.7-16.9); MCH 33.7 pg (25.7-33.7); MCHC 33.2 g/dl (32.0-35.9); MEAN CELL VOLUME 101.6 fl (80-96); MEAN PLT VOLUME 11.9 fl (7.5-11.1); PLATELET COUNT 138 10^3/uL (134-434); WHITE BLOOD COUNT 6.5 K/mm3 (4.0-10.0)
[2021-09-06 19:28] LABS: ALBUMIN 2.6 g/dl (3.4-5.0); BLOOD UREA NITROGEN 52.7 mg/dL (7-18)
[2021-09-06 19:29] LABS: CALCIUM 8.4 mg/dL (8.5-10.1); MAGNESIUM 2.5 mg/dL (1.8-2.4)
[2021-09-06 19:31] LABS: CREATININE 1.6 mg/dL (0.55-1.3); PHOSPHOROUS 2.9 mg/dL (2.5-4.9)
[2021-09-06 19:33] LABS: BILIRUBIN,TOTAL 1.2 mg/dL (0.2-1); TOT PROT 7.4 g/dl (6.4-8.2)
[2021-09-06] MEDS ORDERED: ACETAMINOPHEN INJECTION 100 ML IVPB ONE (19:54)
[2021-09-06] MEDS ORDERED: DEXAMETHASONE SOD PHOSPHATE 10 MG/1 ML VIAL ONE (19:54)
[2021-09-06 19:55] LABS: N-TERMINAL BNP 48942.5 pg/ml (5-450)
[2021-09-06 21:55] LABS: INR 1.76 (0.83-1.09); PROTHROMBIN TIME (PATIENT) 20.3 SEC (9.7-13.0)
[2021-09-06 21:58] LABS: ACTIVATED PTT 29.1 SECONDS (25.2-36.5)
[2021-09-06] MEDS ORDERED: SODIUM CHLORIDE 250 ML IV STA (22:37)
[2021-09-06 23:38] LABS: ANISOCYTOSIS 1+; MACROCYTOSIS 1+; PLATELET ESTIMATE DECREASED; TEAR DROP CELLS 1+
[2021-09-07] MEDS: SOTALOL HCL 80 MG TABLET (FP) PO SCH ×4 (00:10→21:23)
[2021-09-07 00:47] LABS: LACTIC ACID 2.1 mmol/L (0.4-2.0)
[2021-09-07 02:13] VITALS: BMI 23.8
[2021-09-07] MEDS: HEPARIN NA (PORCINE) 5,000 UNITS/ML 1ML VIAL SQ SCH ×4 (02:53→17:32)
[2021-09-07] MEDS ORDERED: PT OWN MED DRAWER 7, Y5N ONE ×2 (05:39→21:04)
[2021-09-07] MEDS: INSULIN SLIDING SCALE (NOVOLOG) 1 VIAL SQ SCH ×3 (06:16→18:03)
[2021-09-07 08:43] LABS: ALBUMIN 2.2 g/dl (3.4-5.0); CALCIUM 8.1 mg/dL (8.5-10.1)
[2021-09-07 08:45] LABS: CREATININE 1.6 mg/dL (0.55-1.3); MAGNESIUM 2.5 mg/dL (1.8-2.4)
[2021-09-07 08:46] LABS: BILIRUBIN,TOTAL 1.1 mg/dL (0.2-1); TOT PROT 6.7 g/dl (6.4-8.2)
[2021-09-07 08:47] LABS: PHOSPHOROUS 4.2 mg/dL (2.5-4.9)
[2021-09-07 10:08] LABS: BASO % 0.4 % (0-2.0); HEMATOCRIT 36.8 % (35.4-49); HEMOGLOBIN 12.5 GM/dL (11.7-16.9); MCH 34.9 pg (25.7-33.7); MCHC 33.8 g/dl (32.0-35.9); MEAN CELL VOLUME 103.3 fl (80-96); MONO % 8.4 % (3.8-10.2); NEUT % 83.2 % (42.8-82.8); RBC 3.57 M/mm3 (4.00-5.60); RDW 14.5 % (11.9-15.9); WHITE BLOOD COUNT 5.5 K/mm3 (4.0-10.0)
[2021-09-07] MEDS: DEXAMETHASONE SOD PHOSPHATE 10 MG/1 ML VIAL IVPUSH SCH (10:51)
[2021-09-07] MEDS: ATORVASTATIN CA 10 MG TABLET (FP) PO SCH (10:59)
[2021-09-07] MEDS: PANTOPRAZOLE 40 MG TABLET PO SCH ×2 (10:59→21:23)
[2021-09-07] MEDS: BUDESONIDE/FORMETEROL FUMARATE 160/4.5 mcg INHALER IH SCH ×2 (11:00→21:23)
[2021-09-07] MEDS: ALBUTEROL SO4 HFA INHALER IH SCH ×3 (11:48→21:23)
[2021-09-07] MEDS: FINASTERIDE 5 MG TABLET (FP) PO SCH (21:23)
[2021-09-07] MEDS: TAMSULOSIN HCL 0.4 MG CAP PO SCH (21:23)
[2021-09-08] MEDS: HEPARIN NA (PORCINE) 5,000 UNITS/ML 1ML VIAL SQ SCH ×2 (01:23→09:34)
[2021-09-08] MEDS: SOTALOL HCL 80 MG TABLET (FP) PO SCH ×3 (05:53→21:45)
[2021-09-08] MEDS: INSULIN SLIDING SCALE (NOVOLOG) 1 VIAL SQ SCH ×3 (06:21→16:39)
[2021-09-08] MEDS: DEXAMETHASONE SOD PHOSPHATE 10 MG/1 ML VIAL IVPUSH SCH (09:32)
[2021-09-08] MEDS: PANTOPRAZOLE 40 MG TABLET PO SCH ×2 (09:33→21:45)
[2021-09-08] MEDS: ATORVASTATIN CA 10 MG TABLET (FP) PO SCH (09:33)
[2021-09-08] MEDS: BUDESONIDE/FORMETEROL FUMARATE 160/4.5 mcg INHALER IH SCH ×2 (09:34→21:45)
[2021-09-08] MEDS: ALBUTEROL SO4 HFA INHALER IH SCH ×4 (09:34→21:45)
[2021-09-08 09:50] LABS: BASO % 0.1 % (0-2.0); HEMOGLOBIN 12.6 GM/dL (11.7-16.9); LYMPH % 1.5 % (8-40); MCH 32.9 pg (25.7-33.7); MCHC 32.5 g/dl (32.0-35.9); MEAN CELL VOLUME 101.4 fl (80-96); MEAN PLT VOLUME 10.7 fl (7.5-11.1); MONO % 9.1 % (3.8-10.2); NEUT % 89.3 % (42.8-82.8); PLATELET COUNT 134 10^3/uL (134-434); RBC 3.84 M/mm3 (4.00-5.60); RDW 14.7 % (11.9-15.9); WHITE BLOOD COUNT 13.5 K/mm3 (4.0-10.0)
[2021-09-08 10:02] LABS: CALCIUM 8.3 mg/dL (8.5-10.1)
[2021-09-08 10:03] LABS: ALBUMIN 2.3 g/dl (3.4-5.0); BLOOD UREA NITROGEN 62.9 mg/dL (7-18); MAGNESIUM 2.6 mg/dL (1.8-2.4)
[2021-09-08 10:06] LABS: CREATININE 1.5 mg/dL (0.55-1.3)
[2021-09-08 10:08] LABS: BILIRUBIN,TOTAL 1.1 mg/dL (0.2-1); TOT PROT 7.1 g/dl (6.4-8.2)
[2021-09-08] MEDS: FINASTERIDE 5 MG TABLET (FP) PO SCH (21:45)
[2021-09-08] MEDS: URSODIOL 300 MG CAPSULE PO SCH (21:45)
[2021-09-08] MEDS: APIXABAN 2.5 MG TABLET PO SCH (21:45)
[2021-09-08] MEDS: TAMSULOSIN HCL 0.4 MG CAP PO SCH (21:45)
[2021-09-09] MEDS: SOTALOL HCL 80 MG TABLET (FP) PO SCH ×3 (05:40→22:27)
[2021-09-09] MEDS: INSULIN SLIDING SCALE (NOVOLOG) 1 VIAL SQ SCH ×3 (06:14→17:41)
[2021-09-09 09:04] LABS: BASO % 0.2 % (0-2.0); HEMATOCRIT 38.7 % (35.4-49); HEMOGLOBIN 12.5 GM/dL (11.7-16.9); LYMPH % 2.1 % (8-40); MCH 32.8 pg (25.7-33.7); MCHC 32.2 g/dl (32.0-35.9); MEAN CELL VOLUME 101.7 fl (80-96); MEAN PLT VOLUME 11.1 fl (7.5-11.1); MONO % 7.9 % (3.8-10.2); NEUT % 89.8 % (42.8-82.8); PLATELET COUNT 118 10^3/uL (134-434); RBC 3.81 M/mm3 (4.00-5.60); RDW 15.1 % (11.9-15.9); WHITE BLOOD COUNT 11.1 K/mm3 (4.0-10.0)
[2021-09-09 09:33] LABS: ALBUMIN 2.3 g/dl (3.4-5.0); CALCIUM 8.7 mg/dL (8.5-10.1); MAGNESIUM 2.7 mg/dL (1.8-2.4)
[2021-09-09 09:36] LABS: CREATININE 1.6 mg/dL (0.55-1.3)
[2021-09-09 09:38] LABS: BILIRUBIN,TOTAL 1.4 mg/dL (0.2-1); TOT PROT 6.9 g/dl (6.4-8.2)
[2021-09-09] MEDS: DEXAMETHASONE SOD PHOSPHATE 10 MG/1 ML VIAL IVPUSH SCH (09:44)
[2021-09-09] MEDS: URSODIOL 300 MG CAPSULE PO SCH ×2 (09:45→22:26)
[2021-09-09] MEDS: BUDESONIDE/FORMETEROL FUMARATE 160/4.5 mcg INHALER IH SCH ×2 (09:45→22:31)
[2021-09-09] MEDS: PANTOPRAZOLE 40 MG TABLET PO SCH ×2 (09:46→22:30)
[2021-09-09] MEDS: ALBUTEROL SO4 HFA INHALER IH SCH ×4 (09:46→20:00)
[2021-09-09] MEDS: ATORVASTATIN CA 10 MG TABLET (FP) PO SCH (09:46)
[2021-09-09] MEDS: APIXABAN 2.5 MG TABLET PO SCH ×3 (09:46→22:30)
[2021-09-09] MEDS: FUROSEMIDE 20 MG TABLET (FP) PO SCH (09:46)
[2021-09-09 18:37] LABS: URINE APPEARANCE CLEAR; URINE BILIRUBIN NEGATIVE (NEGATIVE); URINE COLOR YELLOW; URINE GLUCOSE (UA) NEGATIVE (NEGATIVE); URINE KETONE NEGATIVE (NEGATIVE); URINE LEUK ESTERASE NEGATIVE (NEGATIVE); URINE NITRITE NEGATIVE (NEGATIVE); URINE PROTEIN NEGATIVE (NEGATIVE)
[2021-09-09] MEDS: TAMSULOSIN HCL 0.4 MG CAP PO SCH (22:30)
[2021-09-09] MEDS: FINASTERIDE 5 MG TABLET (FP) PO SCH (22:30)
[2021-09-10] MEDS: SOTALOL HCL 80 MG TABLET (FP) PO SCH ×2 (05:04→14:11)
[2021-09-10] MEDS: INSULIN SLIDING SCALE (NOVOLOG) 1 VIAL SQ SCH ×3 (07:07→16:55)
[2021-09-10] MEDS: ALBUTEROL SO4 HFA INHALER IH SCH ×3 (09:45→16:52)
[2021-09-10] MEDS: APIXABAN 2.5 MG TABLET PO SCH ×2 (09:46→10:13)
[2021-09-10] MEDS: ATORVASTATIN CA 10 MG TABLET (FP) PO SCH (09:46)
[2021-09-10] MEDS: PANTOPRAZOLE 40 MG TABLET PO SCH (09:46)
[2021-09-10] MEDS: FUROSEMIDE 20 MG TABLET (FP) PO SCH (09:46)
[2021-09-10] MEDS: URSODIOL 300 MG CAPSULE PO SCH (09:46)
[2021-09-10] MEDS: DEXAMETHASONE SOD PHOSPHATE 10 MG/1 ML VIAL IVPUSH SCH (09:47)
[2021-09-10] MEDS: BUDESONIDE/FORMETEROL FUMARATE 160/4.5 mcg INHALER IH SCH (09:47)
[2021-09-10 10:57] LABS: HEMATOCRIT 40.1 % (35.4-49); HEMOGLOBIN 13.2 GM/dL (11.7-16.9); MCH 33.5 pg (25.7-33.7); MEAN CELL VOLUME 101.7 fl (80-96); PLATELET COUNT 108 10^3/uL (134-434); RBC 3.95 M/mm3 (4.00-5.60); RDW 15.3 % (11.9-15.9); WHITE BLOOD COUNT 10.3 K/mm3 (4.0-10.0)
[2021-09-10 11:16] LABS: ALBUMIN 2.4 g/dl (3.4-5.0); CALCIUM 8.9 mg/dL (8.5-10.1); MAGNESIUM 2.9 mg/dL (1.8-2.4)
[2021-09-10 11:19] LABS: CREATININE 1.8 mg/dL (0.55-1.3)
[2021-09-10 11:21] LABS: BILIRUBIN,TOTAL 1.7 mg/dL (0.2-1); TOT PROT 7.2 g/dl (6.4-8.2)
[2021-09-10 12:18] LABS: ANISOCYTOSIS 0; HELMET CELLS 0; HOWELL-JOLLY BODIES 0; MACROCYTOSIS 0; OVALOCYTE 0; PLATELET ESTIMATE DECREASED; ROULEAU 0; SICKELED CELLS 0; TARGET CELLS 0; TEAR DROP CELLS 0; TOXIC GRANULATION 0
[2021-09-10 18:35] VITALS: BP 129/65; PULSE 63; TEMP 98
== END 2021-09-10 21:27 | disposition home health service (06) | DRG 177 ==
LOC: JER 15:22 → JERBED 20:36 → J8W 09-07 00:51
PROVIDERS: ADMIT Hospitalist; ATTEND Nurse Practitioner Acute Care
DX: U07.1 COVID-19 (principal); J96.01 Acute respiratory failure with hypoxia; J12.82 Pneumonia due to coronavirus disease 2019; I13.0 Hypertensive heart and chronic kidney disease with heart failure and stage 1 through stage 4 chronic kidney disease, or unspecified chronic kidney disease; N17.9 Acute kidney failure, unspecified; E87.2 Acidosis; I24.8 Other forms of acute ischemic heart disease; I48.21 Permanent atrial fibrillation; I50.22 Chronic systolic (congestive) heart failure; I25.10 Atherosclerotic heart disease of native coronary artery without angina pectoris; Z95.1 Presence of aortocoronary bypass graft; I25.2 Old myocardial infarction; I25.5 Ischemic cardiomyopathy; N40.0 Benign prostatic hyperplasia without lower urinary tract symptoms; E11.22 Type 2 diabetes mellitus with diabetic chronic kidney disease; N18.9 Chronic kidney disease, unspecified; Z79.01 Long term (current) use of anticoagulants; J44.9 Chronic obstructive pulmonary disease, unspecified; C61 Malignant neoplasm of prostate; E86.0 Dehydration; K75.81 Nonalcoholic steatohepatitis (NASH); N18.32 Chronic kidney disease, stage 3b
CPT/HCPCS: 36415; 71045-TC-FY; 80053; 81003; 82550; 82728; 82803; 82962; 83605; 83615; 83735; 83880; 84100; 84484; 85025; 85379; 85610; 85730; 86140; 86850; 86870; 86880; 86900; 86901; 86902; 87040; 87804; 93005; 93010; 97116-GP; 97161-GP; 99285-25; C9803; J0131; J1100; J1644; U0003; U0005

== ENCOUNTER 2021-09-11 05:16 | Emergency (ER) | payer OTHER, BC ==
[2021-09-11 05:27] VITALS: BP 0/0; PULSE 0; BMI 30.8
== END 2021-09-11 07:30 | disposition expired ==
LOC: JER 05:16
DX: U07.1 COVID-19 (principal); I46.2 Cardiac arrest due to underlying cardiac condition
CPT/HCPCS: 99283-25